=== PATIENT | female | born 1935 | race Caucasian/White ===

== ENCOUNTER → 2017-05-30 | Outpatient (CLI) | payer MEDICARE | END | disposition home or self-care (01) | LOC: CFH 10:18 | PROVIDERS: ATTEND Family Medicine | DX: Z13.820 Encounter for screening for osteoporosis (principal); M81.0 Age-related osteoporosis without current pathological fracture; E11.9 Type 2 diabetes mellitus without complications | CPT/HCPCS: 77080 ==

== ENCOUNTER 2017-08-30 16:58 | Inpatient (IN) | payer MEDICARE ==
[~2017-08-30] VITALS: Ht 152.4 cm; Wt 57.7 kg
[~2017-08-30 16:58] MED LIST: LEVOTHYROXINE 75 MCG TABLET PO SCH
[2017-08-30] MEDS ORDERED: LEVO75TA5 PO (17:21)
[2017-08-30] MEDS ORDERED: LOSA50TA6 PO (17:21)
[2017-08-30] MEDS ORDERED: ASPI81TA50 PO (17:21)
[2017-08-30] MEDS ORDERED: LEVO50TA5 PO (17:21)
[2017-08-30] MEDS ORDERED: METO25TA91 PO (17:23)
[2017-08-30] MEDS ORDERED: SIMV80TA3 PO (17:23)
[2017-08-30] MEDS ORDERED: METF500T27 PO (17:23)
[2017-08-30] MEDS ORDERED: CLOP75TA52 PO (17:23)
[2017-08-30] MEDS ORDERED: FURO20TA3 PO (17:23)
[2017-08-30] MEDS ORDERED: SITA100T PO (17:23)
[2017-08-30] MEDS ORDERED: PLEASE ENTER ALLERGIES MC SCH ×2 (18:00)
[2017-08-30] MEDS ORDERED: SODIUM CHLORIDE 0.9% 1,000ML IVBOLUS ONE ×3 (18:00→19:30)
[2017-08-30 18:17] LABS: RAPID INFLUENZA A Negative (Negative); RAPID INFLUENZA B Negative (Negative)
[2017-08-30 18:35] LABS: HEMATOCRIT 24.5 % (34.6-47.8); HEMOGLOBIN 7.8 g/dL (11.7-16.4); WHITE BLOOD COUNT 14.6 x10^3/uL (3.4-10)
[2017-08-30 18:46] LABS: BLOOD UREA NITROGEN 26 mg/dL (7-18)
[2017-08-30] MEDS ORDERED: SODIUM CHLORIDE FLUSH 10ML SYR IVF ONE (19:00)
[2017-08-30] MEDS ORDERED: CEFTRIAXONE PMX 1GM/50ML 50 ML ONE (20:11)
[2017-08-30] MEDS ORDERED: CEFTRIAXONE PMX 1GM/50ML 50 ML IVPB ONE (20:30)
[2017-08-30] MEDS: SODIUM CHLORIDE 0.9% 1,000 ML IV SCH (20:52)
[2017-08-30] MEDS ORDERED: BISACODYL 10 MG SUPP PR PRN (21:00)
[2017-08-30] MEDS ORDERED: POLYETHYLENE GLYCOL 17 GM PACKET PO PRN (21:00)
[2017-08-30] MEDS ORDERED: ONDANSETRON 2MG/ML, 2ML IVPush PRN (21:00)
[2017-08-30] MEDS: HEPARIN 5,000 UNITS/ML, 1ML SQ SCH ×2 (21:00→23:15)
[2017-08-30] MEDS ORDERED: SODIUM CHLORIDE FLUSH 10ML SYR IVF PRN (21:30)
[2017-08-30 21:44] LABS: FERRITIN 8.5 ng/mL (8-252)
[2017-08-30] MEDS: DIPHENHYDRAMINE 25 MG CAPSULE PO PRN (23:15)
[2017-08-30] MEDS: metFORMIN 500 MG TABLET PO SCH (23:15)
[2017-08-30] MEDS: SIMVASTATIN 40 MG TABLET PO SCH (23:15)
[2017-08-30] MEDS: ACETAMINOPHEN 325 MG TABLET PO PRN (23:30)
[2017-08-31] VITALS (10 sets, daily range): BP systolic 105–143; BP diastolic 48–78
[2017-08-31] MEDS: HEPARIN 5,000 UNITS/ML, 1ML SQ SCH ×3 (04:35→20:12)
[2017-08-31 05:29] LABS: HEMOGLOBIN 7.3 g/dL (11.7-16.4); WHITE BLOOD COUNT 8.6 x10^3/uL (3.4-10)
[2017-08-31 05:51] LABS: ASPARTATE AMINO TRANSFERASE 127 U/L (15-37); BLOOD UREA NITROGEN 18 mg/dL (7-18)
[2017-08-31] MEDS ORDERED: LEVOTHYROXINE 75 MCG TABLET PO SCH (06:00)
[2017-08-31] MEDS: FUROSEMIDE 20 MG TABLET PO SCH (09:38)
[2017-08-31] MEDS: metFORMIN 500 MG TABLET PO SCH ×3 (09:38→20:11)
[2017-08-31] MEDS: METOPROLOL SUCCINATE 25 MG TAB.ER.24H PO SCH (09:38)
[2017-08-31] MEDS: SITAGLIPTIN 50MG TABLET PO SCH (09:38)
[2017-08-31] MEDS: SENNA/DOCUSATE TABLET PO SCH (09:38)
[2017-08-31] MEDS: ASPIRIN 81 MG TABLET EC PO SCH (09:39)
[2017-08-31] MEDS: SODIUM CHLORIDE 0.9% 1,000 ML IV SCH (09:39)
[2017-08-31] MEDS: LOSARTAN 50MG TABLET PO SCH (09:39)
[2017-08-31] MEDS: ACETAMINOPHEN 325 MG TABLET PO PRN ×3 (09:43→20:16)
[2017-08-31] MEDS: CLOPIDOGREL 75 MG TABLET PO SCH (09:44)
[2017-08-31] MEDS: IRON SUCROSE COMPLEX 100MG/5ML IV SCH (11:38)
[2017-08-31] MEDS ORDERED: ONDANSETRON 2MG/ML, 2ML IVPush PRN (15:30)
[2017-08-31] MEDS ORDERED: BISACODYL 10 MG SUPP PR PRN (15:30)
[2017-08-31] MEDS ORDERED: POLYETHYLENE GLYCOL 17 GM PACKET PO PRN (15:30)
[2017-08-31 16:54] LABS: HEMATOCRIT 27.9 % (34.6-47.8); HEMOGLOBIN 9.1 g/dL (11.7-16.4); WHITE BLOOD COUNT 8.8 x10^3/uL (3.4-10)
[2017-08-31] MEDS: SIMVASTATIN 40 MG TABLET PO SCH (20:11)
[2017-08-31] MEDS: DIPHENHYDRAMINE 25 MG CAPSULE PO PRN (20:12)
[2017-09-01] MEDS: SODIUM CHLORIDE 0.9% 1,000 ML IV SCH (01:17)
[2017-09-01 02:20] VITALS: BP 149/74
[2017-09-01] MEDS: HEPARIN 5,000 UNITS/ML, 1ML SQ SCH (04:30)
[2017-09-01 05:50] LABS: HEMATOCRIT 28.2 % (34.6-47.8); HEMOGLOBIN 9.2 g/dL (11.7-16.4)
[2017-09-01] MEDS ORDERED: LEVOTHYROXINE 50 MCG TABLET PO SCH (06:00)
[2017-09-01 06:02] LABS: BLOOD UREA NITROGEN 10 mg/dL (7-18)
[2017-09-01 08:04] VITALS: BP 158/79
[2017-09-01] MEDS ORDERED: FERR324T8 PO (08:40)
[2017-09-01] MEDS: LOSARTAN 50MG TABLET PO SCH (09:08)
[2017-09-01] MEDS: ASPIRIN 81 MG TABLET EC PO SCH (09:08)
[2017-09-01] MEDS: SITAGLIPTIN 50MG TABLET PO SCH (09:08)
[2017-09-01] MEDS: CLOPIDOGREL 75 MG TABLET PO SCH (09:08)
[2017-09-01] MEDS: metFORMIN 500 MG TABLET PO SCH (09:08)
[2017-09-01] MEDS: FUROSEMIDE 20 MG TABLET PO SCH (09:08)
[2017-09-01] MEDS: IRON SUCROSE COMPLEX 100MG/5ML IV SCH (09:08)
[2017-09-01] MEDS: METOPROLOL SUCCINATE 25 MG TAB.ER.24H PO SCH (09:09)
[2017-09-01] MEDS: SENNA/DOCUSATE TABLET PO SCH (09:09)
== END 2017-09-01 12:11 | disposition home or self-care (01) | DRG 866 ==
LOC: ED 19:09 → EDIP 20:52 → 3NE 21:59
PROVIDERS: ADMIT Hospitalist; ATTEND Hospitalist
PROC: 30233N1 Transfusion of Nonautologous Red Blood Cells into Peripheral Vein, Percutaneous Approach (ICD-10-PCS; principal; 2017-08-31)
DX: B34.9 Viral infection, unspecified (principal); E87.2 Acidosis; R65.10 Systemic inflammatory response syndrome (SIRS) of non-infectious origin without acute organ dysfunction; E11.9 Type 2 diabetes mellitus without complications; E44.1 Mild protein-calorie malnutrition; E86.0 Dehydration; D50.9 Iron deficiency anemia, unspecified; E03.9 Hypothyroidism, unspecified; E78.00 Pure hypercholesterolemia, unspecified; E78.5 Hyperlipidemia, unspecified; I10 Essential (primary) hypertension; I25.10 Atherosclerotic heart disease of native coronary artery without angina pectoris; I25.2 Old myocardial infarction; Z66 Do not resuscitate; Z80.51 Family history of malignant neoplasm of kidney; Z82.3 Family history of stroke; Z82.5 Family history of asthma and other chronic lower respiratory diseases; Z83.3 Family history of diabetes mellitus; Z85.3 Personal history of malignant neoplasm of breast; Z95.5 Presence of coronary angioplasty implant and graft; Z90.710 Acquired absence of both cervix and uterus; Z79.02 Long term (current) use of antithrombotics/antiplatelets; Z79.899 Other long term (current) drug therapy; Z79.82 Long term (current) use of aspirin; Z68.24 Body mass index [BMI] 24.0-24.9, adult
CPT/HCPCS: 36415; 71010; 80048; 80053; 81001; 82040; 82728; 83540; 83550; 83605; 84145; 84439; 84443; 85025; 86850; 86900; 86923; 87040; 87086; 87400; 93005; 96361; 96374; J0696; J1644; J1756; J7030; P9016; Q0163

== ENCOUNTER 2019-06-10 12:53 | Outpatient (CLI) | payer MEDICARE ==
[~2019-06-10] VITALS: Ht 152.4 cm; Wt 56.2 kg
[2019-06-10 12:45] VITALS: BP 156/70
== END 2019-06-10 23:59 | disposition home or self-care (01) ==
LOC: INFUSION 12:53
PROVIDERS: ATTEND Internal Medicine Geriatric Medicine
DX: D50.9 Iron deficiency anemia, unspecified (principal); I10 Essential (primary) hypertension; E78.2 Mixed hyperlipidemia; E78.00 Pure hypercholesterolemia, unspecified; E11.65 Type 2 diabetes mellitus with hyperglycemia
CPT/HCPCS: 96365; J1439; J7050

== ENCOUNTER 2019-06-17 11:06 | Outpatient (CLI) | payer MEDICARE ==
[~2019-06-17] VITALS: Ht 152.4 cm; Wt 56.0 kg
[2019-06-17 12:35] VITALS: BP 121/68
== END 2019-06-17 23:59 | disposition home or self-care (01) ==
LOC: INFUSION 11:06
PROVIDERS: ATTEND Internal Medicine Geriatric Medicine
DX: D50.9 Iron deficiency anemia, unspecified (principal); I10 Essential (primary) hypertension; E78.5 Hyperlipidemia, unspecified; E78.00 Pure hypercholesterolemia, unspecified; E11.65 Type 2 diabetes mellitus with hyperglycemia
CPT/HCPCS: 96365; J1439; J7050

== ENCOUNTER → 2020-11-14 | Outpatient (CLI) | payer MEDICARE ==
[~2020-11-14] MED LIST changes: +ASPI81TA50 PO; +CALC-451 PO; +CLOP75TA52 PO; +DOCU-180 PO; +FERR324T8 PO; +FURO20TA3 PO; +LEVO50TA5 PO; +LEVO75TA5 PO; -LEVOTHYROXINE 75 MCG TABLET PO SCH; +LOSA50TA14 PO; +METF500T27 PO; +METO25TA35 PO; +METO25TA91 PO; +MULT-6 PO; +OMEG1CAP23 PO; +OMNIPAQUE 350 MG/ML, 100ML BOTTLE ONE; +SIMV80TA18 PO; +SITA100T PO; +UBID100C41 PO
== END | disposition home or self-care (01) ==
LOC: CFH 14:16
PROVIDERS: ATTEND Internal Medicine Cardiovascular Disease
DX: I65.23 Occlusion and stenosis of bilateral carotid arteries (principal); M47.812 Spondylosis without myelopathy or radiculopathy, cervical region; I25.10 Atherosclerotic heart disease of native coronary artery without angina pectoris
CPT/HCPCS: 70498; Q9967